=== PATIENT | female | born 1955 | race Caucasian/White ===

== ENCOUNTER → 2016-08-18 | Day surgery (SDC) | payer OTHER ==
--- NOTE | 2016-08-18 08:27 | Operative Note ---
Colonoscopy ([facility]) Procedure date: 08/18/16 Date of : 51 Procedure:Colonoscopy Colonoscopy Indications: Mrs. Kiran is a 61-year-old female who is here for follow-up screening/ surveillance colonoscopy. This is the patient's third colonoscopy performed for screening purposes. She does state that her father had colon cancer at the age of 73. She had a normal colonoscopy in 2004. She had a colonoscopy in May 2011 (Dr. Zhang) which showed a single benign hyperplastic polyp removed at the hepatic flexure. The patient reports no abdominal pain, weight loss, change in her bowel habits or rectal bleeding. Performing Provider: Be Mondragon MD Referrring Provider: Omi Holman M.D. Sedation: Fentanyl 200 mg IV/Versed 9 mg IV Procedure: Prior to the procedure, a history and physical exam was performed, and patient medications and allergies were reviewed. The risks and benefits of the procedure and the sedation options and risks were discussed with the patient. All questions were answered and informed consent was obtained. Patient identification and proposed procedure were verified by the physician and the nurse. The patient was placed in a left lateral decubitus position. Throughout the procedure, the patient's blood pressure, pulse, and oxygen saturations were monitored continuously. Findings: On digital rectal examination there was normal rectal tone. There were no external hemorrhoids. The colonoscope was introduced through the anal canal to the rectum and advanced to the cecum. The ileocecal valve and appendiceal orifice were identified. The scope was advanced a short distance into the ileum which appeared grossly normal. The scope was then withdrawn into the colon. The cecum, ascending, transverse, descending, sigmoid and rectum were grossly normal. There were no mucosal abnormalities identified. Upon retroflexion within the rectum there were grade 1 internal hemorrhoids. Impressions: 1. Normal colonoscopy with intubation of the terminal ileum 2. Grade 1 internal hemorrhoids Recommendations: Based upon the patient's family history, I would recommend repeat surveillance/ screening in 5 years. Complications: None EBL (ml): 0 at 1082
[2016-08-18 13:37] VITALS: BP 101/51
== END ==
LOC: SDC 06:59
PROVIDERS: Internal Medicine Gastroenterology
PROC: 0DJD8ZZ Inspection of Lower Intestinal Tract, Via Natural or Artificial Opening Endoscopic (ICD-10-PCS; principal; 2016-08-18 08:00)
DX: Z12.11 Encounter for screening for malignant neoplasm of colon (principal); Z86.010 Personal history of colon polyps; K64.0 First degree hemorrhoids